=== PATIENT | male | born 1980 | race Caucasian/White ===

== ENCOUNTER 2016-09-12 03:35 | Inpatient (IN) | payer OTHER ==
[2016-09-12] VITALS (9 sets, daily range): BP systolic 115–134; BP diastolic 59–83
[~2016-09-12] VITALS: Ht 188 cm; Wt 76.9 kg
--- NOTE | ~2016-09-12 | HC ---
[facility] [place] [address] CONSULTATION Name: FABY THEODORE Room #: 408-P [facility] [place] .R.#: [id number] Admission: 09/12/16 Attend Phys: Zhou Wright MD Discharge: 09/13/16 Date of : 82 Report #: [id number] THIS REPORT FOR: //name// CC: FAM physician/PCP Zhou Wright DATE OF SERVICE: 09/12/2016 ATTENDING PHYSICIAN: Zhou Wright M.D. CONSULTING PHYSICIAN: Rogelio Covington M.D. REASON FOR CONSULTATION: Nausea, vomiting and abdominal pain. HISTORY OF PRESENT ILLNESS: This is a 36-year-old male patient who has had difficulty with nausea, vomiting and abdominal pain starting around noon yesterday. He also reports diarrhea and that he vomited nearly 20 times. He states that his last meal was yesterday afternoon, at which time he ate either a cheeseburger or a Sloppy Darnell (the patient is uncertain). He does have a history of methamphetamine abuse and took meth 2 days ago. In addition, he smokes marijuana and tried smoking a new batch recently. He was seen in the Emergency Room where he initially underwent an abdominal x-ray, which showed a distended stomach. This was followed by a CT scan which showed diffuse small bowel wall thickening and hyperemia suggestive of enteritis. In addition to that, the patient had a right inguinal hernia with fluid located within the hernia. There was no obstruction noted. I have been asked to see the patient for further evaluation and treatment. PAST MEDICAL HISTORY: Denies. He has no history for inflammatory bowel disease. PAST SURGICAL HISTORY: Open left inguinal hernia repair. HOME MEDICATIONS: None. ALLERGIES: No known drug allergies. FAMILY HISTORY: Reviewed and noncontributory to this hospitalization. SOCIAL HISTORY: The patient reports smoking cigarettes and denies any use of alcohol. He does also report smoking marijuana and using methamphetamines frequently. REVIEW OF SYSTEMS: As per history of present illness. GENERAL: The patient denies unintentional weight loss. He denies fever or chills. [facility] [address] [place] [address] CONSULTATION Name: FABY THEODORE WANNASKA Room #: 408-P [facility] [place] M.R.#: [id number] Admission: 09/12/16 Attend Phys: Zhou Wright MD Discharge: 09/13/16 Date of : 82 Report #: [id number] HEENT: Denies changes in taste, vision, hearing or smell. RESPIRATORY: Denies shortness of breath, COPD or asthma. CARDIOVASCULAR: Denies chest pain or palpitations. GASTROINTESTINAL: As per history of present illness. Questionable bright red blood per rectum. Questionable hematemesis. GENITOURINARY: Denies dysuria, urgency, increased urinary frequency or hematuria. He does complain of right groin pain, especially with intercourse, and notes that his testicle seems to enter his abdomen during this, requiring him to move it back down into his scrotum. MUSCULOSKELETAL: Denies myalgia, arthralgia or arthritis. NEUROLOGIC: Denies headaches, numbness or tingling. PSYCHIATRIC: Denies depression, anxiety or suicidal ideations. SKIN AND INTEGUMENTARY: Denies new skin lesions, rashes or moles. ENDOCRINE: Denies polydipsia, polyuria, heat or cold intolerance. All other review of systems is negative. PHYSICAL EXAMINATION: VITAL SIGNS: Temperature 36.2 degrees Celsius, blood pressure 134/68, pulse 68 and respirations 18. GENERAL: This is a well-developed and well-nourished 36-year-old male patient in no acute distress. HEENT: Atraumatic and normocephalic with moist mucosal membranes. Oropharynx is clear. He has no scleral icterus. Teeth are normal. NECK: Supple, no appreciable lymphadenopathy. Trachea is midline. CHEST: Clear bilaterally. No crackles or wheezes. CARDIOVASCULAR: Regular rate and rhythm, S1 and S2. ABDOMEN: Soft, but tender to palpation diffusely and greatest in the right lower quadrant near the easily appreciable right inguinal hernia. An open left inguinal hernia repair scar is present. There is no evidence for recurrent herniation on the left side. There is no overlying erythema or edema. GENITOURINARY: Normal external male genitalia. EXTREMITIES: No clubbing, cyanosis or edema. NEUROLOGIC: Cranial nerves 2-12 grossly intact. PSYCHIATRIC: Normal mood and affect but appears uncomfortable. SKIN AND INTEGUMENTARY: No acute inflammatory changes, rashes or lesions are present. LABORATORY DATA: CBC shows a white blood cell count of 14.9, hemoglobin 15.3, hematocrit 45.6 and platelets 310. Electrolytes show a sodium of 140, potassium 3.8, chloride 103, CO2 of 29, BUN 9, creatinine 0.9 and glucose 117. His liver function tests are within normal limits. Lipase is normal. Urinalysis is entirely negative. Toxicology screen shows positive opiates, positive amphetamine/methamphetamine, positive benzodiazepine and positive marijuana. RADIOLOGIC STUDIES: Abdominal x-ray and CT findings are as noted above. [facility] [address] [place] [address] CONSULTATION Name: FABY THEODORE Room #: 408-P [facility] [place] Nash#: [id number] Admission: 09/12/16 Attend Phys: Zhou Wright MD Discharge: 09/13/16 Date of : 82 Report #: [id number] IMPRESSION AND PLAN: This is a 36-year-old male patient with enteritis as well as a right inguinal hernia with obvious bulging and significant tenderness to palpation. His white blood cell count is elevated and likely secondary to volume contraction from his multiple episodes of nausea, vomiting and diarrhea. Repair of his right inguinal hernia is indicated. We discussed the pathophysiology and natural history of the inguinal hernias as well as the treatment alternatives and surgical options. The patient would benefit from the laparoscopic approach. He is also aware that he may require conversion to an open procedure. He understands the risks, benefits and expectations and wishes to proceed. He will be taken to the operating room at the next earliest availability. I sincerely appreciate the opportunity to participate in the care of this patient, and we will leave further recommendations and orders in the electronic medical record as appropriate. <ELECTRONICALLY SIGNED> By: Rogelio Covington MD, FACS 09/14/16 1711 [id number] Rogelio Covington MD, FACS /nt
--- NOTE | ~2016-09-12 | O ---
[facility] [place] [address] OPERATIVE REPORT Name: FABY THEODORE Room #: 408-P [facility] [place] M.R.#: [id number] Admission: 09/12/16 Attend Phys: Zhou Wright MD Discharge: 09/13/16 Date of : 82 Report #: [id number] THIS REPORT FOR: //name// CC: KERVIN physician/PCP Zhou Wright DATE OF SERVICE: 09/12/2016 SURGEON: Rogelio Covington M.D. STUDENT NURSE: Ash Cassidy M.D. PREOPERATIVE DIAGNOSIS: Right inguinal hernia. POSTOPERATIVE DIAGNOSIS: Right inguinal hernia. PROCEDURE: Laparoscopic totally extraperitoneal repair of right inguinal hernia with ProGrip mesh. ANESTHESIA: General endotracheal anesthesia and local anesthetic. ESTIMATED BLOOD LOSS: 5 mL. SPECIMEN: None. COMPLICATIONS: None appreciated. INDICATIONS FOR PROCEDURE: This is a 36-year-old male patient who has had difficulty with right inguinal hernia and who presented with nausea, vomiting, and diarrhea. His CT scan showed the hernia as well as changes consistent with gastroenteritis. He had significant bulging and tenderness to palpation on exam. He presents now for repair of his right inguinal hernia. DESCRIPTION OF PROCEDURE IN DETAIL: After the benefits and risks of the procedure were explained to the patient, which include but are not limited to risks of bleeding, infection, possible need for conversion to an open procedure, postoperative pain, and postoperative expectations, informed consent was obtained. The patient was identified in the preoperative holding area. He was given IV antibiotics as documented in the chart in line with the SCIP protocol. The patient was then taken to the operating room and he was placed in the supine position. SCDs were placed on the patient's bilateral lower extremities and pneumatic compression was initiated. A Narayanan catheter was placed. A pneumatic compression was initiated. The patient was then given IV sedation and he was intubated without incident. A Narayanan catheter was then placed to dependent drainage. The patient's abdomen was then prepped and draped in standard sterile fashion. A time-out was performed to identify the correct patient and [address] [address] OPERATIVE REPORT Name: FABY THEODORE MYERS FLAT Room #: 408-P [facility] IN M.R.#: [id number] Admission: 09/12/16 Attend Phys: Zhou Wright MD Discharge: 09/13/16 Date of : 82 Report #: [id number] procedure. Local anesthetic was infiltrated into the skin and subcutaneous tissue in the left infraumbilical area where a curvilinear incision was made. Dissection was carried down to the left anterior rectus sheath fascia. The fascia was opened transversely. The medial aspect of the left rectus abdominis muscles was identified. It was swept laterally and the underlying peritoneal lining was seen. The Spacemaker port was then advanced into the preperitoneal space with a gentle sweeping motions towards the pubic tubercle. The obturator was removed and the Spacemaker balloon was inflated under direct visualization with a 0-degree angled laparoscope. The scope and balloon were then removed. The cuff was inflated. A 30-degree angled laparoscope was then inserted. The preperitoneal cavity was insufflated to 15 mmHg with carbon dioxide. The patient was placed in the supine position, rotated to his left. A 5 mm port were placed in the lower midline x 2 under direct visualization after local anesthetic was infiltrated into the skin and subcutaneous tissue and appropriately sized transverse incisions were made. The right preperitoneal space was then explored. The peritoneal lining was dissected off of the anterior abdominal wall. The inferior epigastric vessels were identified. The pubic tubercle was also seen. The peritoneal lining extending to the indirect defect was identified. This was carefully swept down. While doing so, the right spermatic cord was isolated and protected. The hernia content was completely dissected out of the indirect inguinal space. There was a moderate sized spermatic cord lipoma which was dissected out as well. After doing so, there is no evidence for a direct or femoral hernia. After adequately dissecting the tissue out of the indirect defect, the ProGrip mesh was prepared on the backtable. The mesh was then rolled and placed within the preperitoneal space through the Spacemaker port. The mesh was unrolled in a scroll-down fashion with the adherent surface against the anterior groin. The mesh was unrolled such that there was no significant rippling. The defect was covered with good overlap and the mesh extended to the midline. The hernia sac and cord lipoma were placed such that they would lie outside of the defect and the mesh. The preperitoneal space was then desufflated and the ports were removed. A small amount of air had escaped into the peritoneal cavity. A 5 mm Visiport was used to enter the peritoneal cavity to desufflate the area. After adequate desufflation, the port was removed. The left anterior rectus sheath fascia was closed with [id number] 0 PDS sutures x 2. Interrupted subcuticular 4-0 Monocryl sutures and Dermabond were then used to close the skin incisions. The patient tolerated the procedure well. He was awakened, extubated, and taken to the recovery room in stable condition with no apparent intraoperative complications. <ELECTRONICALLY SIGNED> By: Rogelio Covington MD, FACS 09/14/16 1711 [id number] Rogelio Covington MD, FACS /nt
[2016-09-12 04:13] LABS: BASOPHILS 0.4 % (0.0-2.0); EOSINOPHILS 0.3 % (0.0-3.0); HEMATOCRIT 45.6 % (42.0-52.0); HEMOGLOBIN 15.3 gm/dL (14.0-18.0); LYMPHOCYTES 14.7 % (24.0-44.0); MCH 29.2 pg (26.0-34.0); MCHC 33.5 % (28.0-37.0); MCV 87.2 fL (80.0-100.0); MONOCYTES 4.6 % (1.0-8.0); PLATELET COUNT 310 thou/uL (150-400); RBC 5.23 mil/uL (4.50-6.00); RDW 14.1 % (10.5-14.5); WBC 14.9 thou/uL (4.0-11.0)
[2016-09-12 04:14] LABS: MANUAL DIFF NO
[2016-09-12] MEDS ORDERED: ZOFRAN ODT8 MG PO (04:16)
[2016-09-12 04:28] LABS: ALBUMIN 3.9 g/dL (3.4-5.0); CALCIUM 8.8 mg/dL (8.5-10.1); CREATININE 0.9 mg/dL (0.6-1.3); TOTAL BILIRUBIN 0.4 mg/dL (<0.1-1.0); TOTAL PROTEIN 7.4 g/dL (6.4-8.2)
[2016-09-12 04:33] LABS: POTASSIUM 3.8 mmol/L (3.5-5.1)
[2016-09-12 22:45] LABS: URINE BILIRUBIN NEGATIVE (Negative); URINE BLOOD NEGATIVE (Negative); URINE COLOR YELLOW; URINE GLUCOSE-RANDOM* NEGATIVE (Negative); URINE KETONES NEGATIVE (Negative); URINE LEUKOCYTES-REFLEX NEGATIVE (Negative); URINE PROTEIN (DIPSTICK) NEGATIVE (Negative); URINE SPECIFIC GRAVITY 1.025 (1.003-1.035); URINE UROBILINOGEN 0.2 E.U./dl (0.2-1.0)
[2016-09-13 03:55] VITALS: BP 112/73
[2016-09-13 05:02] LABS: HEMATOCRIT 39.8 % (42.0-52.0); MCH 28.4 pg (26.0-34.0); MCHC 32.7 % (28.0-37.0); PLATELET COUNT 302 thou/uL (150-400); RBC 4.58 mil/uL (4.50-6.00); RDW 14.4 % (10.5-14.5); WBC 13.8 thou/uL (4.0-11.0)
[2016-09-13 05:09] LABS: MANUAL DIFF YES
[2016-09-13 05:17] LABS: CALCIUM 7.8 mg/dL (8.5-10.1); CREATININE 0.9 mg/dL (0.6-1.3); MAGNESIUM 1.7 mg/dL (1.8-2.4); POTASSIUM 3.9 mmol/L (3.5-5.1); TOTAL BILIRUBIN 0.4 mg/dL (<0.1-1.0)
[2016-09-13 06:59] LABS: ABSOLUTE NEUTROPHILS 12.4 thou/uL (1.4-8.2); TOTAL CELL COUNT 100
[2016-09-13 07:00] LABS: ANISOCYTOSIS 1+
[2016-09-13 08:00] VITALS: BP 107/57
[2016-09-13 11:38] LABS: AMP/METHAMP POSITIVE (Negative); BARBITURATES Negative (Negative); BENZODIAZEPINES POSITIVE (Negative); COCAINE Negative (Negative)
[2016-09-13 11:39] LABS: METHADONE Negative (Negative); OPIATES POSITIVE (Negative); PCP Negative (Negative); THC POSITIVE (Negative)
[2016-09-13] MEDS ORDERED: ZOFRAN ODT4 MG DISSOLVE (16:41)
[2016-09-13] MEDS ORDERED: HYDROCODONE-APA1 TA1 PO (16:41)
[2016-09-13 16:42] VITALS: BP 107/57
[2016-09-13] MEDS ORDERED: SENNA S TABLET1 EACH PO (16:42)
== END 2016-09-13 17:09 | disposition home or self-care (01) | DRG 352 ==
LOC: ER 03:35 → EROBS 07:17 → 4N 07:17
PROVIDERS: Emergency Medicine; Nurse Practitioner
PROC: 0YU54JZ Supplement Right Inguinal Region with Synthetic Substitute, Percutaneous Endoscopic Approach (ICD-10-PCS; principal; 2016-09-12)
DX: K40.30 Unilateral inguinal hernia, with obstruction, without gangrene, not specified as recurrent (principal); K52.9 Noninfective gastroenteritis and colitis, unspecified; F17.210 Nicotine dependence, cigarettes, uncomplicated; F15.10 Other stimulant abuse, uncomplicated; F12.10 Cannabis abuse, uncomplicated; Z98.890 Other specified postprocedural states; Z28.21 Immunization not carried out because of patient refusal
CPT/HCPCS: 10091; 50010; 50101; 50249; 50411; 50455; 50555; 50944; 51824; 52265; 52266; 54118; 54169; 55245; 56525; 56526; 62110; 62900; 70005